=== PATIENT | male | born 1965 | race Two or more races ===

== ENCOUNTER 2017-06-02 03:05 | Emergency (ER) | payer OTHER ==
[2017-06-02 03:19] VITALS: BP 100/51; PULSE 78; TEMP 98.7; BMI 31.9
--- NOTE | 2017-06-02 03:26 | PDOC ---
History of Present Illness - History of Present Illness Initial Comments: 06/02/17 04:39 Mr. Hannah is a 51 year old male with a significant past medical history of NIDDM , HC, HTN, and prostate cancer who presents to the emergency department with a 1 day history of weakness to the legs and some loss of leg coordinations with tingling of his feet. He says that the foot tingling occurred in the past when his diabetes was acting up, but that the weakness feeling was new. The patient denies chest pain, shortness of breath, headache and dizziness. Denies fever, chills, nausea, vomit, diarrhea and constipation. Denies dysuria, frequency, urgency and hematuria. Allergies: NKDA Past surgical history: Prostate surgery, cataract removal Social history: Social drinking, smokes approx. 1 pack of cigarettes / week PMD - Diana Jose 06/02/17 04:40 06/02/17 04:44 <Rene Fierro - Last Filed: 06/02/17 03:46> <Marissa Weaver - Last Filed: 06/02/17 21:32> - General Chief Complaint: CVA/TIA Stated Complaint: NUMBNESS/TINGLING OF FEET Time Seen by Provider: 06/02/17 03:24 Past History - Past Medical History Anemia: No Asthma: Yes ( CHILD) Cancer: No Cardiac Disorders: No CVA: No COPD: No CHF: No Dementia: No Diabetes: Yes GI Disorders: No Disorders: No HTN: Yes Hypercholesterolemia: No Liver Disease: No Seizures: No Thyroid Disease: No - Surgical History Abdominal Surgery: No Appendectomy: No Cardiac Surgery: No Cholecystectomy: No Lung Surgery: No Neurologic Surgery: No Orthopedic Surgery: Yes (L4-5 LAMINECTOMY) - Psycho/Social/Smoking Cessation Hx Suicidal Ideation: No Smoking History: Never smoked Have you smoked in the past 12 months: No If you are a former smoker, when did you quit?: 4 YRS Information on smoking cessation initiated: No Hx Alcohol Use: No Drug/Substance Use Hx: No Substance Use Type: None Hx Substance Use Treatment: No <Rene Fierro - Last Filed: 06/02/17 03:46> <Marissa Weaver - Last Filed: 06/02/17 21:32> - Past Medical History Allergies/Adverse Reactions: Allergies Allergy/AdvReac Type Severity Reaction Status Date / Time No Known Drug Allergies Allergy Verified 06/02/17 03:18 Home Medications: Ambulatory Orders Atorvastatin Ca [Lipitor] 20 mg PO HS 01/25/16 Glipizide [Glipizide ER] 10 mg PO DAILY 01/25/16 Lisinopril 10 mg PO DAILY 01/25/16 Sitagliptin Phos/Metformin HCl [Janumet 50-1,000 mg Tablet] 1 each PO DAILY Review of Systems - Review of Systems Comments:: 06/02/17 04:40 GENERAL/CONSTITUTIONAL: +Weakness reported in the legs. Tingling to the toes and feet with legs feeling like "weights on them." No fever or chills. HEAD, EYES, EARS, NOSE AND THROAT: No change in vision. No ear pain or discharge. No sore throat. CARDIOVASCULAR: No chest pain or shortness of breath RESPIRATORY: No cough, wheezing, or hemoptysis. GASTROINTESTINAL: No nausea, vomiting, diarrhea or constipation. GENITOURINARY: No dysuria, frequency, or change in urination. MUSCULOSKELETAL: No joint or muscle swelling or pain. No neck or back pain. SKIN: No rash NEUROLOGIC: No headache, vertigo, loss of consciousness, or change in strength/ sensation. ENDOCRINE: No increased thirst. No abnormal weight change HEMATOLOGIC/LYMPHATIC: No anemia, easy bleeding, or history of blood clots. ALLERGIC/IMMUNOLOGIC: No hives or skin allergy. 06/02/17 04:44 <Rene Fierro - Last Filed: 06/02/17 03:46> *Physical Exam - Vital Signs Last Vital Signs Temp Pulse Resp BP Pulse Ox 98.7 F 78 20 100/51 97 06/02/17 03:18 06/02/17 03:18 06/02/17 03:18 06/02/17 03:18 06/02/17 03:18 - Physical Exam Comments: 06/02/17 04:40 GENERAL: Awake, alert, and fully oriented, in no acute distress HEAD: No signs of trauma, normocephalic, atraumatic EYES: PERRLA, EOMI, sclera anicteric, conjunctiva clear ENT: Auricles normal inspection, hearing grossly normal, nares patent, oropharynx clear without exudates. Moist mucosa NECK: Normal ROM, supple, no lymphadenopathy, JVD, or masses LUNGS: No distress, speaks full sentences, clear to auscultation bilaterally HEART: Regular rate and rhythm, normal S1 and S2, no murmurs, rubs or gallops, peripheral pulses normal and equal bilaterally. ABDOMEN: Soft, nontender, normoactive bowel sounds. No guarding, no rebound. No masses EXTREMITIES: +Loss of sharp/dull differentiation intermediate down shins ROMAN. Normal inspection, Normal range of motion, no edema. No clubbing or cyanosis. NEUROLOGICAL: Cranial nerves II through XII grossly intact. Normal speech, normal gait, no focal sensorimotor deficits SKIN: Warm, Dry, normal turgor, no rashes or lesions noted. 06/02/17 04:46 <Rene Fierro - Last Filed: 06/02/17 03:46> - Vital Signs Last Vital Signs Temp Pulse Resp BP Pulse Ox 98.7 F 78 20 100/51 97 06/02/17 03:18 06/02/17 03:18 06/02/17 03:18 06/02/17 03:18 06/02/17 03:18 <Marissa Weaver - Last Filed: 06/02/17 21:32> ED Treatment Course - LABORATORY CBC & Chemistry Diagram: 06/02/17 03:55 06/02/17 03:55 - ADDITIONAL ORDERS Additional order review: 06/02/17 03:55 RBC 4.77 D MCV 87.2 MCHC 32.9 RDW 15.1 MPV 9.3 <Marissa Weaver - Last Filed: 06/02/17 21:32> Medical Decision Making - Medical Decision Making 06/02/17 04:47 Mr. Hannah presented for evaluation of weakness and tingling that he says makes his "legs feel like noodles." He endorses recently losing 50 pounds in an effort to be more health and control his diabetes. He says that according to his PCP he no longer needs medication for HTN, DM, or HC. Sudden onset weakness and parasthesias concerning for spinal column changes or effects from his diabetes. Ordered Lumbar CT to evaluate as well as general CBC / BMP. CBC/BMP values WNL. 06/02/17 04:52 06/02/17 04:54 CT read negative for new pathology. Will refer to neurology outpatient. <Rene Fierro - Last Filed: 06/02/17 03:46> *DC/Admit/Observation/Transfer - Attestations Physician Attestion: 06/02/17 04:56 I, Dr. Rene Fierro, attest that this document has been prepared under my direction and personally reviewed by me in its entirety. I further attest, that it accurately reflects all work, treatment, procedures and medical decision -making performed by me. <Rene Fierro - Last Filed: 06/02/17 03:46> <Marissa Weaver - Last Filed: 06/02/17 21:32> Diagnosis at time of Disposition: Weakness of both legs - Discharge Dispostion Disposition: HOME - Referrals Referrals: Diana Jose MD [Primary Care Provider] - Parker Saleh MD [Staff Physician] - - Patient Instructions Printed Discharge Instructions: DI for Numbness/tingling Additional Instructions: Please return immediately if your symptoms get worse or you experience any pain/ loss of sensation
[2017-06-02 04:03] LABS: MCH 28.7 pg (25.7-33.7); MCHC 32.9 g/dl (32.0-35.9); MEAN CELL VOLUME 87.2 fl (80-96); MEAN PLT VOLUME 9.3 fl (7.5-11.1); PLATELET COUNT 245 K/MM3 (134-434); RDW 15.1 % (11.9-15.9)
[2017-06-02 04:25] LABS: ANION GAP 7 (8-16); CALCIUM 8.6 mg/dL (8.5-10.1); CO2 28 mmol/L (21-32); CREATININE 1.2 mg/dL (0.7-1.3); GLUCOSE,RANDOM 93 mg/dL (74-106)
--- NOTE | 2017-06-02 05:01 | PDOC ---
Attending Attestation - Resident Resident Name: Rene Fierro - HPI HPI: 06/02/17 04:56 Pt comes with numbness of his lower legs bilaterally. No other complaints. No loss of bowel or bladder. - Physicial Exam PE: 06/02/17 04:57 Normal exam. No pitting edema of legs. Heart lungs normal. Normal neuro exam and CN exam and reflexes. Slightly decreased pinprick sensation of the lower legs. I agree with residents exam. - Medical Decision Making 06/02/17 05:01 CT L spine is normal; no sign of spinal cord lesions thhat could be causing pt' s paresthesias. Pt's labs are normal. He will be asked to follow with neurology as an outpatient
== END 2017-06-02 05:08 | disposition home or self-care (01) ==
LOC: JER 03:05
DX: M62.81 Muscle weakness (generalized) (principal); I10 Essential (primary) hypertension; E11.9 Type 2 diabetes mellitus without complications
CPT/HCPCS: 36415; 72131-TC; 80048; 85027; 99283-25

== ENCOUNTER 2017-06-14 19:56 | Inpatient (IN) | payer OTHER ==
[2017-06-14 20:11] VITALS: BMI 27.0
--- NOTE | 2017-06-14 20:25 | PDOC ---
History of Present Illness - General History Source: Patient Exam Limitations: No Limitations - History of Present Illness Initial Comments: The patient is a 51 yo M with a past medical history significant for NIDDM, HC, HTN, prostate cancer, back surgeries on L3L4L5 (last surgery in 2014) who presents with increasing numbness in his LE (R worse than L). He states his back , legs and feet all feel like pins and needles. The patient was seen here on for numbness and tingling of his feet which has since progressed to both his legs and arms. The patient states he previously injured himself working lifting a heavy object. He states that he now feels like he doesnt have complete control over his LE. He states his current medications arent helping with his pain. The patient states he has an appointment on Saturday with pain management. He also endorses shooting pains down his R arm that began yesterday. The patient denies urinary and bowel changes. He denies chest pain, palpitations, and lightheadedness. <Deya Cordoba - Last Filed: 06/14/17 21:24> <Marissa Weaver - Last Filed: 06/15/17 03:48> - General Chief Complaint: Pain Stated Complaint: BACK AND LEG PAIN Time Seen by Provider: 06/14/17 20:24 Past History <Deya Cordoba - Last Filed: 06/14/17 21:24> - Past Medical History Anemia: No Asthma: Yes ( CHILD) Cancer: No Cardiac Disorders: No CVA: No COPD: No CHF: No Dementia: No Diabetes: Yes GI Disorders: No Disorders: No HTN: Yes Hypercholesterolemia: No Liver Disease: No Seizures: No Thyroid Disease: No - Surgical History Abdominal Surgery: No Appendectomy: No Cardiac Surgery: No Cholecystectomy: No Lung Surgery: No Neurologic Surgery: No Orthopedic Surgery: Yes (L4-5 LAMINECTOMY) - Psycho/Social/Smoking Cessation Hx Anxiety: No Suicidal Ideation: No Smoking History: Never smoked Have you smoked in the past 12 months: No Number of Cigarettes Smoked Daily: 4 If you are a former smoker, when did you quit?: 4 YRS Information on smoking cessation initiated: No Hx Alcohol Use: No Drug/Substance Use Hx: No Substance Use Type: None Hx Substance Use Treatment: No <Marissa Weaver - Last Filed: 06/15/17 03:48> - Past Medical History Allergies/Adverse Reactions: Allergies Allergy/AdvReac Type Severity Reaction Status Date / Time No Known Drug Allergies Allergy Verified 06/14/17 20:07 Home Medications: Ambulatory Orders Gabapentin [Neurontin -] 300 mg PO Q8H 06/14/17 Review of Systems - Review of Systems Able to Perform ROS?: Yes Comments:: CONSTITUTIONAL: Absent: fever, chills, diaphoresis, generalized weakness, malaise, loss of appetite HEENT: Absent: rhinorrhea, nasal congestion, throat pain, throat swelling, difficulty swallowing, mouth swelling, ear pain, eye pain, visual Changes CARDIOVASCULAR: Absent: chest pain, syncope, palpitations, irregular heart rate, lightheadedness , peripheral edema RESPIRATORY: Absent: cough, shortness of breath, dyspnea with exertion, orthopnea, wheezing, stridor, hemoptysis GASTROINTESTINAL: Absent: abdominal pain, abdominal distension, nausea, vomiting, diarrhea, constipation, melena, hematochezia GENITOURINARY: Absent: dysuria, frequency, urgency, hesitancy, hematuria, flank pain, genital pain MUSCULOSKELETAL: Absent: myalgia, arthralgia, joint swelling SKIN: Absent: rash, itching, pallor HEMATOLOGIC/IMMUNOLOGIC: Absent: easy bleeding, easy bruising, lymphadenopathy, frequent infections ENDOCRINE: Absent: unexplained weight gain, unexplained weight loss, heat intolerance, cold intolerance NEUROLOGIC: +deficits to light touch in UE and LE bilaterally. Motor deficits in LE and RUE. Unsteady gait. Absent: headache, dizziness, seizure, mental status changes, bladder or bowel incontinence PSYCHIATRIC: Absent: anxiety, depression, suicidal or homicidal ideation, hallucinations. <Deya Cordoba - Last Filed: 06/14/17 21:24> *Physical Exam - Vital Signs Last Vital Signs Temp Pulse Resp BP Pulse Ox 98.0 F 87 20 148/86 99 06/14/17 20:08 06/14/17 20:08 06/14/17 20:08 06/14/17 20:08 06/14/17 20:08 - Physical Exam Comments: GENERAL: Well developed, well nourished. Awake and alert. No acute distress. HEENT: Normocephalic, atraumatic. PERRLA, EOMI. No conjunctival pallor. Sclera are non- icteric. Moist mucous membranes. Oropharynx is clear. NECK: Supple. Full ROM. No JVD. Carotid pulses 2+ and symmetric, without bruits. No thyromegaly. No lymphadenopathy. CARDIOVASCULAR: Regular rate and rhythm. No murmurs, rubs, or gallops. Distal pulses are 2+ and symmetric. PULMONARY: No evidence of respiratory distress. Lungs clear to auscultation bilaterally. No wheezing, rales or rhonchi. ABDOMINAL: Soft. Non-tender. Non-distended. No rebound or guarding. No organomegaly. Normoactive bowel sounds. MUSCULOSKELETAL Normal range of motion at all joints. No bony deformities or tenderness. No CVA tenderness. EXTREMITIES: No cyanosis. No clubbing. No edema. No calf tenderness. SKIN: Warm and dry. Normal capillary refill. No rashes. No jaundice. NEUROLOGICAL: Alert, awake, appropriate. Cranial nerves 2-12 intact. No deficits to light touch and temperature in face. No motor deficits in the in face, upper extremities and lower extremities. 4/ 5 strength in LE bilaterally. Decreased sensation to pinprick bilaterally, arm strength decreased bilaterally. PSYCHIATRIC: Cooperative. Good eye contact. Appropriate mood and affect. <Deya Cordoba - Last Filed: 06/14/17 21:24> - Vital Signs Last Vital Signs Temp Pulse Resp BP Pulse Ox 98.0 F 87 20 148/86 99 06/14/17 20:08 06/14/17 20:08 06/14/17 20:08 06/14/17 20:08 06/14/17 20:08 <Marissa Weaver - Last Filed: 06/15/17 03:48> ED Treatment Course - LABORATORY CBC & Chemistry Diagram: 06/14/17 21:39 06/14/17 21:39 <Marissa Weaver - Last Filed: 06/15/17 03:48> Medical Decision Making - Medical Decision Making 06/15/17 01:18 Patient Name: Nemesio Hannah THIS IS A PRELIMINARYREPORT FROM [facility] EXAM: CT cervical spine without contrast IMAGES: 325 INDICATION: Left arm weakness DATE OF SERVICE: 2017-06-14 23:20:37.0 COMPARISON: none FINDINGS: Tiny central herniation is at C3-4 and C5-6 without significant mass effect. There is mild right neural foraminal narrowing at C5-6 due to uncovertebral joint hypertrophy. Small central herniation at C6-7 which mildly narrows the central canal. There is no fracture, subluxation, prevertebral soft tissue swelling. The lung apices are clear. IMPRESSION: Tiny central C3-4 and C5-6 herniations without mass effect, although there is mild right neural foraminal narrowing at C5-6 due to uncovertebral joint hypertrophy. Mild central canal narrowing at C6-7 T2-1 small central herniation. THIS DOCUMENT HAS BEEN ELECTRONICALLY SIGNED Patient Name: Nemesio Hannah THIS IS A PRELIMINARYREPORT FROM [facility] EXAM: CT lumbar spine without contrast IMAGES: 328 INDICATION: Worsening bilateral leg numbness DATE OF SERVICE: 2017-06-14 23:27:26.0 COMPARISON: none FINDINGS: No fracture or subluxation. Patient is status post L3 and L4 laminectomy with fusion from L3-L5 as well as interbody fusion. The L3-4 demonstrates incomplete osseous incorporation superiorly. The L4-5 intervertebral bone plug demonstrates complete osseous incorporation. Posterior instrumentation is appropriate position. There is mild right neural foraminal narrowing at L3-4 level secondary to lateral osteophytic ridging. No central canal neural frontal narrowing is identified. at the L3-4 level does not demonstrate osseous incorporation superiorly though it does inferiorly in the L4 -5 IMPRESSION: Mild right L3-4 neural foraminal narrowing due to lateral osteophytic ridging. Incomplete osseous incorporation of the L3-4 bone plug. THIS DOCUMENT HAS BEEN ELECTRONICALLY SIGNED 06/15/17 03:44 Pt comes with worsening leg weakness for the past week or so. Now ambulating with a cane. States that he has great difficulty walking up his 4 flights to his apt. Pt has 4/5 strength throughout. He has good reflexes and pulses. Normal pulses in legs and feet. Pt has parsthesias, decreased pin prick sensation. pt will be admitted to the hospitalist team as he is unable to walk and drive and he will require neuro eval/consult <Marissa Weaver - Last Filed: 06/15/17 03:48> *DC/Admit/Observation/Transfer - Attestations Scribe Attestion: Documentation prepared by Deya Cordoba, acting as medical support specialist for Marissa Weaver MD/DO. <Deya Cordoba - Last Filed: 06/14/17 21:24> - Discharge Dispostion Admit: Yes <Marissa Weaver - Last Filed: 06/15/17 03:48> Diagnosis at time of Disposition: Weakness of both legs, Unable to ambulate - Discharge Dispostion Disposition: HOME - Referrals
[2017-06-14 22:11] LABS: EOSINOPHIL 7.9 % (0-4.5); MCH 29.1 pg (25.7-33.7); MCHC 33.1 g/dl (32.0-35.9); MEAN PLT VOLUME 10.1 fl (7.5-11.1); NEUTROPHILS 40.7 % (42.8-82.8); PLATELET COUNT 220 K/MM3 (134-434); RDW 14.9 % (11.9-15.9); WHITE BLOOD COUNT 5.6 K/mm3 (4.0-10.0)
[2017-06-14 22:37] LABS: ALBUMIN 3.5 g/dl (3.4-5.0); ANION GAP 5 (8-16); CALCIUM 9.5 mg/dL (8.5-10.1); CO2 27 mmol/L (21-32); CREATININE 0.7 mg/dL (0.7-1.3); GLUCOSE,RANDOM 84 mg/dL (74-106); SGOT/AST 27 U/L (15-37); SGPT/ALT 32 U/L (12-78)
[2017-06-14 22:43] LABS: ALK PHOS 89 U/L (45-117); BILIRUBIN,TOTAL 0.1 mg/dL (0.2-1.0); TOT PROT 7.2 g/dl (6.4-8.2)
--- NOTE | 2017-06-15 01:37 | PN ---
Teaching Attending Note Name of Resident: Pau Wheeler ATTENDING PHYSICIAN STATEMENT I saw and evaluated the patient. I reviewed the resident's note and discussed the case with the resident. I agree with the resident's findings and plan as documented. SUBJECTIVE: 51 yo M with pmhx of NIDDM, Prostate Ca s/p TURP, low back injury s/p sx L3-L5 ( 2014). He presents with increasing numbness iN RLE and weakness in RLE >LLE. States he has numbness/ tingling of bilateral LE and UE that has been happening past few days.No chest pain, Pressure or shortness of breah OBJECTIVE: Physical: VS: Vital Signs Period Temp Pulse Resp BP Sys/Gates Pulse Ox Last 24 Hr 98.0 F 87 20 148/86 99 GEN: NAD, resting in bed HEENT: NCAT, PERRL, moth without Erythema/edema CARD:RRR S2 RESP: CTAB ABD: BSx4, NTD to papation ExT: - C/C/E CBCD WBC 5.6 K/mm3 (4.0-10.0) 06/14/17 21:39 RBC 4.96 M/mm3 (4.00-5.60) 06/14/17 21:39 Hgb 14.5 GM/dL (11.7-16.9) 06/14/17 21:39 Hct 43.6 % (35.4-49) 06/14/17 21:39 MCV 88.0 fl (80-96) 06/14/17 21:39 MCHC 33.1 g/dl (32.0-35.9) 06/14/17 21:39 RDW 14.9 % (11.9-15.9) 06/14/17 21:39 Plt Count 220 K/MM3 (134-434) 06/14/17 21:39 MPV 10.1 fl (7.5-11.1) 06/14/17 21:39 CMP Sodium 140 mmol/L (136-145) 06/14/17 21:39 Potassium 4.4 mmol/L (3.5-5.1) 06/14/17 21:39 Chloride 108 mmol/L (98-107) H 06/14/17 21:39 Carbon Dioxide 27 mmol/L (21-32) 06/14/17 21:39 Anion Gap 5 (8-16) L 06/14/17 21:39 BUN 17 mg/dL (7-18) 06/14/17 21:39 Creatinine 0.7 mg/dL (0.7-1.3) D 06/14/17 21:39 Creat Clearance w eGFR > 60 (>60) 06/14/17 21:39 Random Glucose 84 mg/dL (74-106) 06/14/17 21:39 Calcium 9.5 mg/dL (8.5-10.1) 06/14/17 21:39 Total Bilirubin 0.1 mg/dL (0.2-1.0) L D 06/14/17 21:39 AST 27 U/L (15-37) D 06/14/17 21:39 ALT 32 U/L (12-78) D 06/14/17 21:39 Alkaline Phosphatase 89 U/L (45-117) D 06/14/17 21:39 Total Protein 7.2 g/dl (6.4-8.2) D 06/14/17 21:39 Albumin 3.5 g/dl (3.4-5.0) D 06/14/17 21:39 06/15/17 01:18 Patient Name: Nemesio Hannah THIS IS A PRELIMINARYREPORT FROM [facility] EXAM: CT cervical spine without contrast IMAGES: 325 INDICATION: Left arm weakness DATE OF SERVICE: 2017-06-14 23:20:37.0 COMPARISON: none FINDINGS: Tiny central herniation is at C3-4 and C5-6 without significant mass effect. There is mild right neural foraminal narrowing at C5-6 due to uncovertebral joint hypertrophy. Small central herniation at C6-7 which mildly narrows the central canal. There is no fracture, subluxation, prevertebral soft tissue swelling. The lung apices are clear. IMPRESSION: Tiny central C3-4 and C5-6 herniations without mass effect, although there is mild right neural foraminal narrowing at C5-6 due to uncovertebral joint hypertrophy. Mild central canal narrowing at C6-7 T2-1 small central herniation. THIS DOCUMENT HAS BEEN ELECTRONICALLY SIGNED Patient Name: Nemesio Hannah THIS IS A PRELIMINARYREPORT FROM [facility] EXAM: CT lumbar spine without contrast IMAGES: 328 INDICATION: Worsening bilateral leg numbness DATE OF SERVICE: 2017-06-14 23:27:26.0 COMPARISON: none FINDINGS: No fracture or subluxation. Patient is status post L3 and L4 laminectomy with fusion from L3-L5 as well as interbody fusion. The L3-4 demonstrates incomplete osseous incorporation superiorly. The L4-5 intervertebral bone plug demonstrates complete osseous incorporation. Posterior instrumentation is appropriate position. There is mild right neural foraminal narrowing at L3-4 level secondary to lateral osteophytic ridging. No central canal neural frontal narrowing is identified. at the L3-4 level does not demonstrate osseous incorporation superiorly though it does inferiorly in the L4 -5 IMPRESSION: Mild right L3-4 neural foraminal narrowing due to lateral osteophytic ridging. Incomplete osseous incorporation of the L3-4 bone plug. THIS DOCUMENT HAS BEEN ELECTRONICALLY SIGNED ASSESSMENT AND PLAN: 51 M with pmhx of HTN,. HLD, prostate ca who presents with bilateral LE weakness with LLE being at its weakness 1.) Bilateral LE weakbess - No signs of cord compression on CT - MRI Thoracic/Lumbar spine 2.) HTN - C/w Home med 3.) Hx of Prostate Ca - Fu outp.Chk. PSA 4.) Dvt Ppx - Heparin [address] in Med-Sx
--- NOTE | 2017-06-15 03:00 | HP ---
CHIEF COMPLAINT: Legs are getting weak PCP: Dr. Jose HISTORY OF PRESENT ILLNESS: Pt is a 51yo M with a PMHX of lumbar surgeries (2014), well-controlled DM2, prostate cancer s/p prostatectomy, HLD, HTN who presented with increasing weakness and numbness in his feet with increased numbness in his fingertips. The patient was seen in the ER last week for complaints of B/L Leg numbness and tingling. At that time a CT of the lumbar spine was taken which showed L3-L4 graft with end-plate irregularity with associated sclerosis. No definite canal stenosis or disc herniation. The patient's labs were WNL and he was asked to followup with neurology as an outpatient. He states that he saw Dr. Weller ( neurosurgeon) this Saturday who states his symptoms are likely from his back surgeries. The patient came into the ER today complaining that the weakness and numbness have progressively gotten worse, and now he needs an assistive cane to walk. He denies bladder or bowel dysfunction, but attests to neuropathic pain radiating from back to both legs. He also is experiencing B/L hand numbness and weakness, and attests to neuropathic pain radiating from neck to hands. He does have chronic diabetic neuropathy, and is on Gabapentin. No CP, no SOB, no fevers , no chills. ER course was notable for: (1) Labs (2) CT C-Spine - Levels of central herniation and mild foraminal narrowing by osteophytes (3) CT L-Spine - L3-L4 laminectomy, with foraminal narrowing due to osteophytes Recent Travel: Denies PAST MEDICAL HISTORY: DM2 (well controlled), HLD, HTN, Prostate cancer (s/p prostatectomy) PAST SURGICAL HISTORY: L3-L4 laminectomy, Prostatectomy, cataract surgery Social History: Smokin-3 cigarettes a day Alcohol: Occasional drinker Drugs: Denies Family History: Noncontributory Allergies No Known Drug Allergies Allergy (Verified 06/14/17 20:07) HOME MEDICATIONS: Home Medications Medication Instructions Recorded Gabapentin [Neurontin -] 300 mg PO Q8H 06/14/17 REVIEW OF SYSTEMS CONSTITUTIONAL: Absent: fever, chills, diaphoresis, generalized weakness, malaise, loss of appetite, weight change HEENT: Absent: rhinorrhea, nasal congestion, throat pain, throat swelling, difficulty swallowing, mouth swelling, ear pain, eye pain, visual changes CARDIOVASCULAR: Absent: chest pain, syncope, palpitations, irregular heart rate, lightheadedness , peripheral edema RESPIRATORY: Absent: cough, shortness of breath, dyspnea with exertion, orthopnea, wheezing, stridor, hemoptysis GASTROINTESTINAL: Absent: abdominal pain, abdominal distension, nausea, vomiting, diarrhea, constipation, melena, hematochezia GENITOURINARY: Absent: dysuria, frequency, urgency, hesitancy, hematuria, flank pain, genital pain MUSCULOSKELETAL: Absent: myalgia, arthralgia, joint swelling, back pain, neck pain SKIN: Absent: rash, itching, pallor HEMATOLOGIC/IMMUNOLOGIC: Absent: easy bleeding, easy bruising, lymphadenopathy, frequent infections ENDOCRINE: Absent: unexplained weight gain, unexplained weight loss, heat intolerance, cold intolerance NEUROLOGIC: Absent: headache, dizziness, seizure, mental status changes, bladder or bowel incontinence Present: weakness, paresthesias, unsteady gait PSYCHIATRIC: Absent: anxiety, depression, suicidal or homicidal ideation, hallucinations. PHYSICAL EXAMINATION Vital Signs - 24 hr 06/14/17 20:08 Temperature 98.0 F Pulse Rate 87 Respiratory 20 Rate Blood Pressure 148/86 O2 Sat by Pulse 99 Oximetry (%) GENERAL: AAO, in no acute distress HEENT: PERRLA, EOMi, No LAD LUNG: CTABL, no labored breathing HEART: S1, S2, RRR, No MRG ABD: Soft, nontender, nondistended, normoactive BS MSK: 2+ pulses, no erythema, no edema NEURO: Oriented x3 Cranial nerves 2-12 intact Sensation: Sensation is increased on the RUE > LUE, and RLE > LLE; no vibratory or gross touch sensation on dorsal feet b/l, minimal sensation on plantar Muscular: Upper Extremity (R handgrip 4/5, R biceps 4/5, R triceps 4/5; L handgrip 5 /5, L bicep 5/5, L tricep 5/5) Lower extremity (R hip ext 3/5, R knee ext 4/5, R dorsi/plant flex 4/5, L hip ext 4/5, L knee ext 4/5, L dorsi/plant flex 4/5) Reflexes: 2+ in UE, 1+ in LE Laboratory Results - last 24 hr 06/14/17 06/14/17 21:39 21:39 WBC 5.6 RBC 4.96 Hgb 14.5 Hct 43.6 MCV 88.0 MCH 29.1 MCHC 33.1 RDW 14.9 Plt Count 220 MPV 10.1 Neutrophils % 40.7 L D Lymphocytes % 42.5 H D Monocytes % 7.9 Eosinophils % 7.9 H D Basophils % 1.0 Sodium 140 Potassium 4.4 Chloride 108 H Carbon Dioxide 27 Anion Gap 5 L BUN 17 Creatinine 0.7 D Creat Clearance w eGFR > 60 Random Glucose 84 Calcium 9.5 Total Bilirubin 0.1 L D AST 27 D ALT 32 D Alkaline Phosphatase 89 D Total Protein 7.2 D Albumin 3.5 D MED Rec: Patient told the examiner that he only takes Gabapentin Imaging: CT Cervical Spine (prelim from [employer]) FINDINGS: Tiny central herniation is at C3-4 and C5-6 w/o mass effect. Mild R neural foraminal narrowing at C5-6 due to uncovertebral joint hypertrophy. Small central herniation at C6-7 which mildly narrows the central canal. There is no fx, subluxation, prevertebral soft tissue swelling. The lung apices are clear. IMPRESSION: Tiny central C3-4 and C5-6 herniations without mass effect, although there is mild right neural foraminal narrowing at C5-6 due to uncovertebral joint hypertrophy. Mild central canal narrowing at C6-7, T2-[address] Lumbar Spine (prelim from [facility] [employer]) FINDINGS: No fracture or subluxation. Patient is status post L3 and L4 laminectomy with fusion from L3-L5 as well as interbody fusion. The L3-4 demonstrates incomplete osseous incorporation superiorly. The L4-5 intervertebral bone plug demonstrates complete osseous incorporation. Posterior instrumentation is appropriate position. There is mild right neural foraminal narrowing at L3-4 level secondary to lateral osteophytic ridging. No central canal neural frontal narrowing is identified. at the L3-4 level does not demonstrate osseous incorporation superiorly though it does inferiorly in the L4 -5 IMPRESSION: Mild right L3-4 neural foraminal narrowing due to lateral osteophytic ridging. Incomplete osseous incorporation of the L3-4 bone plug. ASSESSMENT/PLAN: Pt is a 51yo M with a hx of lumbar spine surgery, DM2, HLD, HTN who presented with progressive weakness and numbness of his bilateral upper and lower extremities. # Bilateral LE Weakness - CT L spine shows mild foraminal narrowing without cord compression - F/u MRI L spine - Consult Neurosurgery (Dr. Weller) + Neurology (Dr. Gilmore) # Bilateral UE Numbness - Diabetic neuropathy vs c-spine pathology - F/u MRI C spine - Continue home Gabapentin # Hx of Prostate CA - s/p surgery, f/u with PCP as an outpatient - Consider checking PSA - Bone scan in 2016 was negative for mets # Hx of DM2 - BGMs + SSI # Hx of HTN - Pt does not take antiHTN meds - BP on admission 148/86 - Started Lisinopril 10mg QD # Hx of HLD - F/u lipid panel # FEN - Fluids: None - Electrolytes: F/u, no abnormalities - Nutrition: Sodium diet # Prophylaxis - DVT: Heparin 5,000u SQ TID - GI: Not needed - Deconditioning: PT ordered # Disposition - Await MRI and Neurosurgery reccs Dr. Pau Wheeler MD. PGY1 - IM Resident This case was discussed with the attending physician Dr. Caldwell Visit type - Emergency Visit Emergency Visit: Yes ED Registration Date: 06/15/17 Care time: The patient presented to the Emergency Department on the above date and was hospitalized for further evaluation of their emergent condition. - New Patient This patient is new to me today: Yes Date on this admission: 06/16/17 - Critical Care Critical Care patient: No
[2017-06-15] MEDS ORDERED: GABAPENTIN 300 MG CAPSULE (FP) PO SCH (06:00)
[2017-06-15] MEDS: HEPARIN NA (PORCINE) 5,000 UNITS/ML 1ML VIAL SQ SCH ×3 (06:45→22:50)
[2017-06-15] MEDS: INSULIN SLIDING SCALE (NOVOLOG) 1 VIAL SQ SCH ×3 (06:46→16:37)
[2017-06-15] MEDS ORDERED: HYDROmorphone HCL CARPU-JECT 1 MG/1 ML DISP.SYRIN IVPB PRN ×2 (08:35→10:32)
[2017-06-15] MEDS: LISINOPRIL 10 MG TABLET (FP) PO SCH (09:49)
--- NOTE | 2017-06-15 10:31 | PN ---
Physical Exam: SUBJECTIVE: Patient seen and examined c/o unable to ambulate. Ambulating with difficulty. The patient denies urinary and bowel changes. OBJECTIVE: Vital Signs Temperature 97.8 F 06/15/17 09:14 Pulse Rate 60 06/15/17 09:14 Respiratory Rate 20 06/15/17 09:14 Blood Pressure 125/80 06/15/17 09:14 O2 Sat by Pulse Oximetry (%) 98 06/15/17 04:46 GENERAL: The patient is awake, alert, and fully oriented, in no acute distress. HEAD: Normal with no signs of trauma. EYES: PERRL, extraocular movements intact, sclera anicteric, conjunctiva clear. ENT: Ears normal, oropharynx clear without exudates, moist mucous membranes. NECK: Trachea midline, full range of motion, supple. LUNGS: Breath sounds equal, clear to auscultation bilaterally, no wheezes, no crackles, no accessory muscle use. HEART: Regular rate and rhythm, S1, S2 without murmur, rub or gallop. ABDOMEN: Soft, nontender, nondistended, normoactive bowel sounds, no guarding, no rebound, no hepatosplenomegaly, no masses. EXTREMITIES: 2+ pulses, warm, well-perfused, no edema. NEUROLOGICAL: Cranial nerves II through XII grossly intact. Normal speech, gait not observed, RUE power 4/5 < LUE 5/5 PSYCH: Normal mood, normal affect. SKIN: Warm, dry, normal turgor, no rashes or lesions noted CBCD WBC 5.6 K/mm3 (4.0-10.0) 06/14/17 21:39 RBC 4.96 M/mm3 (4.00-5.60) 06/14/17 21:39 Hgb 14.5 GM/dL (11.7-16.9) 06/14/17 21:39 Hct 43.6 % (35.4-49) 06/14/17 21:39 MCV 88.0 fl (80-96) 06/14/17 21:39 MCHC 33.1 g/dl (32.0-35.9) 06/14/17 21:39 RDW 14.9 % (11.9-15.9) 06/14/17 21:39 Plt Count 220 K/MM3 (134-434) 06/14/17 21:39 MPV 10.1 fl (7.5-11.1) 06/14/17 21:39 CMP Sodium 140 mmol/L (136-145) 06/14/17 21:39 Potassium 4.4 mmol/L (3.5-5.1) 06/14/17 21:39 Chloride 108 mmol/L (98-107) H 06/14/17 21:39 Carbon Dioxide 27 mmol/L (21-32) 06/14/17 21:39 Anion Gap 5 (8-16) L 06/14/17 21:39 BUN 17 mg/dL (7-18) 06/14/17 21:39 Creatinine 0.7 mg/dL (0.7-1.3) D 06/14/17 21:39 Creat Clearance w eGFR > 60 (>60) 06/14/17 21:39 Random Glucose 84 mg/dL (74-106) 06/14/17 21:39 Calcium 9.5 mg/dL (8.5-10.1) 06/14/17 21:39 Total Bilirubin 0.1 mg/dL (0.2-1.0) L D 06/14/17 21:39 AST 27 U/L (15-37) D 06/14/17 21:39 ALT 32 U/L (12-78) D 06/14/17 21:39 Alkaline Phosphatase 89 U/L (45-117) D 06/14/17 21:39 Total Protein 7.2 g/dl (6.4-8.2) D 06/14/17 21:39 Albumin 3.5 g/dl (3.4-5.0) D 06/14/17 21:39 Current Medications Generic Name Dose Route Start Last Admin Trade Name Freq PRN Reason Stop Dose Admin Gabapentin 300 mg 06/15/17 06:00 06/15/17 06:45 Neurontin - PO 300 mg TID SHERRIE Administration Heparin Sodium (Porcine) 5,000 unit 06/15/17 06:00 06/15/17 06:45 Heparin - SQ 5,000 unit TID SHERRIE Administration Hydromorphone HCl 0.5 mg 06/15/17 08:35 06/15/17 09:19 Dilaudid Injection - IVPB 0.5 mg Q3H PRN Administration PAIN LEVEL 6-10 Insulin Aspart 1 vial 06/15/17 07:00 06/15/17 06:46 Novolog Vial Sliding Scale - SQ Not Given [facility] Protocol Lisinopril 10 mg 06/15/17 10:00 06/15/17 09:49 Prinivil PO 10 mg DAILY SHERRIE Administration Laboratory Results - last 24 hr 06/15/17 06:21 POC Glucometer 84 Active Medications Generic Name Dose Route Start Last Admin Trade Name Freq PRN Reason Stop Dose Admin Gabapentin 300 mg 06/15/17 06:00 06/15/17 06:45 Neurontin - PO 300 mg TID SHERRIE Administration Heparin Sodium (Porcine) 5,000 unit 06/15/17 06:00 06/15/17 06:45 Heparin - SQ 5,000 unit TID SHERRIE Administration Hydromorphone HCl 0.5 mg 06/15/17 08:35 06/15/17 09:19 Dilaudid Injection - IVPB 0.5 mg Q3H PRN Administration PAIN LEVEL 6-10 Insulin Aspart 1 vial 06/15/17 07:00 06/15/17 06:46 Novolog Vial Sliding Scale - SQ Not Given [facility] Protocol Lisinopril 10 mg 06/15/17 10:00 06/15/17 09:49 Prinivil PO 10 mg DAILY SHERRIE Administration Home Medications Medication Instructions Recorded Gabapentin [Neurontin -] 300 mg PO Q8H 06/14/17 CT Cervical Spine ([facility]relim from [facility]) IMPRESSION: Tiny central C3-4 and C5-6 herniations without mass effect, although there is mild right neural foraminal narrowing at C5-6 due to vertebral joint hypertrophy. Mild central canal narrowing at C6-7, T2-[address] Lumbar Spine (prelim from [facility]) IMPRESSION: Mild right L3-4 neural foraminal narrowing due to lateral osteophytic ridging. Incomplete osseous incorporation of the L3-4 bone plug. ASSESSMENT/PLAN: Patient is a 51yo male well known to Dr.Tom Weller , with PMHx of NIDDM, HC, HTN, prostate cancer, lumbar fusion (L4-5 then L3-4) presented to ED. c/o increasing numbness in his LE (R worse than L), patient has hx of peripheral neuropathy on Neurontin .Also having difficulty with ambulation, He states that he walks like a drunk person . He is also c/o shooting pain down his R arm x 2 days. having difficulty walking with cane. States that he Fell backwards yesterday. # Acute over chronic pain syndrome/ Sciatica pain/peripheral neuropathy on neurontin continue, dilaudid IV for pain. Ordered thoracic and lumbar MRI r/o cord impingement by Neurosurgeon. will keep the patient NPO for now # acute over chronic radiculopathy on pain meds, being seen by neurologist. Patient is going to see pain management for SCS for chronic LBP/radiculopathy and peripheral neuropathy # Hx of Prostate CA s/p surgery, f/u with PCP as an outpatient, Bone scan in 2016 was negative for mets # Hx of DM2 ,sliding scale with coverage for now. # Hx of HTN, not on any meds. Started Lisinopril 10mg QD # Hx of HLD; F/u lipid panel DVT Px: Heparin 5,000u SQ TID Visit type - Emergency Visit Emergency Visit: Yes ED Registration Date: 06/15/17 Care time: The patient presented to the Emergency Department on the above date and was hospitalized for further evaluation of their emergent condition. - New Patient This patient is new to me today: Yes Date on this admission: 06/15/17 - Critical Care Critical Care patient: No
--- NOTE | 2017-06-15 11:01 | PN ---
Progress Note (short form) - Note Progress Note: NEUROSURGERY Pt well known to me H/o NIDDM, HC, HTN, prostate cancer, lumbar fusion (L4-5 then L3-4) c/o increasing numbness in his LE (R worse than L), though with chronic numbness and weakness for many years. c/o decreasing control and dexterity. Numbness in arm/hands, and legs/feet. He also c/o shooting pain down his R arm x 2 days. Difficulty walking with cane. Fell backwards yesterday. The patient denies urinary and bowel changes. PMH: Lumbar fusion, IDDN, HTN, prostate CA, depression SoHx- non-smoker, no EtOH, not working ROS- negative Family history- mother with scoliosis and lumbar fusion PE: AF, VSS HEENT- NC/AT; Neck- mild spasm;CV- RRR; Lungs- CTA; Abd- benign; Ext- No sign of DVT CN- intact; Motor- B UE 4+-5 pain limited; B LE 4+-5 except R Quad/IP 4-/5 also pain limited; Sensation- decreased B L4-5-S1 LT/PP; DTR- hyporeflexic; no long tract sign WBC 5.6; Hgb 14.[address]- mild reversal of lordosis; mild L disc bulge C6-7, mild disc bulge C5-6; mild spondylosis, DDD most noticeable C5-6 and C6-[address] (c/w May)- healed L4-5 and L3-4 interbody fusion, L3-4 pedicle screw system intact, mild ligamentum hypertrophy L2-3 Patient with chronic pain syndrome and chronic radiculopathy complicated possibly by diabetic peripheral neuropathy Current CT findings do not account for degree of symptomatology Cont Neurontin trial- increase dosage Thoracic and lumbar MRI r/o cord impingement Was going to see pain management for SCS for chronic LBP/radiculopathy and peripheral neuropathy and should do so Doubt neurosurgical intervention needed D/w medical team
--- NOTE | 2017-06-15 11:20 | CON.NEURO ---
Consult - History of Present Illness History of Present Illness: worsening of low back pain , difficulty walking , worsening of numbness in his finger tips HPI 51 year old male history of work related injury in past, he had surgery in 2006 and a revision in [address] johnson and recently He has worsening of back pain and severe back pain. As per patient he was taking opioids and he could not get and his pain got worse . He denies any recent injury or fever . He has history of prostate cancer ( s/p prostectomy, hld, htn ). Patient saw dr johnson and he suspected that pain is getting worse from abck surgery. He does also have diabetic neuropathy. He is able to walk but having difficulty walking. - Alcohol/Substance Use Hx Alcohol Use: No - Smoking History Smoking history: Former smoker Have you smoked in the past 12 months: No Aproximately how many cigarettes per day: 4 If you are a former smoker, when did you quit?: 4 YRS Home Medications - Allergies Allergies/Adverse Reactions: Allergies Allergy/AdvReac Type Severity Reaction Status Date / Time No Known Drug Allergies Allergy Verified 06/14/17 20:07 - Home Medications Home Medications: Ambulatory Orders Gabapentin [Neurontin -] 300 mg PO Q8H 06/14/17 Physical Exam-Neuro Vital Signs: Vital Signs Temperature 97.8 F 06/15/17 09:14 Pulse Rate 60 06/15/17 09:14 Respiratory Rate 20 06/15/17 09:14 Blood Pressure 125/80 06/15/17 09:14 O2 Sat by Pulse Oximetry (%) 98 06/15/17 04:46 NIH Stroke Scale - Total Score NIH Stroke Scale Score: 0 Assessment/Plan cc worsening of low back pain , difficulty walking , worsening of numbness in his finger tips HPI 51 year old male history of work related injury in past, he had surgery in 2006 and a revision in [address] johnson and recently He has worsening of back pain and severe back pain. As per patient he was taking opioids and he could not get and his pain got worse . He denies any recent injury or fever . He has history of prostate cancer ( s/p prostectomy, hld, htn ). Patient saw dr johnson and he suspected that pain is getting worse from abck surgery. He does also have diabetic neuropathy. He is able to walk but having difficulty walking. 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, tricep, bicep, shoulder abduciton were 5/5 Lower extermity there is more grade 4+ bialteral in hip flexion, knee flexion and dorsi flexion knee extension , hip extension and planter flexion were grade 5/5 there is sensy dysthesia more so on right side l4-5-6 distribution bilaterally bilateral knee and ankle reflex absent upper extremity both bicep and brachioradialis and tricep reflex were grade 2 CT c spine and l spine were reviewed Assessment-- worsening of severe back pain and worsening of walking ( given recent discontinuation of opioid meds), there is no urinary incontinence and there is reflex are present in upper extremity , most likey there seems symptoms seems to be related to lumbar spine and worsening of diabetic neuropathy , Less likely to be Guillain - [place] Syndrome Plan suggest to do MRI of L and C spine -- Physical therapy - gabpentin can be increased to 600 mg po tid - Neurosurgery consult( Dr Johnson is going to see him) Thank you for consult
[2017-06-15] MEDS: GABAPENTIN 400 MG CAPSULE (FP) PO SCH ×2 (13:26→22:50)
[2017-06-15] MEDS ORDERED: PT OWN MED DRAWER 7, Y5N ONE (17:47)
[2017-06-15] MEDS: CYCLOBENZAPRINE HCL 10 MG TABLET (FP) PO PRN (22:50)
[2017-06-16] MEDS: INSULIN SLIDING SCALE (NOVOLOG) 1 VIAL SQ SCH ×3 (06:23→17:17)
[2017-06-16] MEDS: HEPARIN NA (PORCINE) 5,000 UNITS/ML 1ML VIAL SQ SCH ×3 (06:23→22:24)
[2017-06-16] MEDS: GABAPENTIN 400 MG CAPSULE (FP) PO SCH ×3 (06:23→22:24)
--- NOTE | 2017-06-16 08:17 | EKG ---
Test Reason : Blood Pressure : / mmHG Vent. Rate : 062 BPM Atrial Rate : 062 BPM P-R Int : 138 ms QRS Dur : 090 ms QT Int : 398 ms P-R-T Axes : 058 001 017 degrees QTc Int : 403 ms NORMAL SINUS RHYTHM WITH SINUS ARRHYTHMIA NORMAL ECG WHEN COMPARED WITH ECG OF 23-AUG-2014 13:02, NO SIGNIFICANT CHANGE WAS FOUND Confirmed by BECKY PIERCE MD ([id number]) on 06/16/2017 8:17:47 AM Referred By: Confirmed By:BECKY PIERCE MD
--- NOTE | 2017-06-16 10:34 | PN ---
Progress Note (short form) - Note Progress Note: NEUROSURGERY Pain pattern unchanged; numbness and tingling unchanged PE: AF, VSS HEENT- NC/AT; Neck- mild spasm;CV- RRR; Lungs- CTA; Abd- benign; Ext- No sign of DVT CN- intact; Motor- B UE 4+-5 pain limited; B LE 4+-5 except R Quad/IP 4-/5 also pain limited; Sensation- decreased B L4-5-S1 LT/PP; DTR- hyporeflexic; no long tract sign C spine CT- mild reversal of lordosis; mild L disc bulge C6-7, mild disc bulge C5-6; mild spondylosis, DDD most noticeable C5-6 and C6-[address] (may)- healed L4-5 and L3-4 interbody fusion, L3-4 pedicle screw system intact, mild ligamentum hypertrophy L2-3 MRI C spine: multilevel mild DDD; mild disc bulge C3-4; small central disc protrusion C5-6 and C6-7 without significant central stenosis MRI T spine: mild spondylosis; multilevel mild degenerative disc disease; no canal impingement; mild T12-L1 degenerative disc bulge MRI LS spine: Prior L3-5 fusion; canal well decompressed at these levels; mild facet hypetrophy B; mild L2-3 foramenal narrowing Patient with chronic pain syndrome and chronic radiculopathy complicated by diabetic peripheral neuropathy Current CT/MRI findings do not account for degree of symptomatology or warrant any direct neurosurgical intervention for the C, T or LS spine Cont Neurontin trial- increased dosage to 400 tid yesterday Should see his pain management MD (Dr Wells) tomorrow as scheduled for SCS evaluation/consideration for chronic LBP/radiculopathy and peripheral neuropathy coverage F/U with PMD Dr Jose for DM medical management, weight reduction PT in am Saturday then discharge The above d/w patient D/w medical team
[2017-06-16 11:29] LABS: MEAN CELL VOLUME 87.9 fl (80-96); MEAN PLT VOLUME 9.5 fl (7.5-11.1); PLATELET COUNT 208 K/MM3 (134-434); RDW 14.8 % (11.9-15.9); WHITE BLOOD COUNT 4.8 K/mm3 (4.0-10.0)
[2017-06-16] MEDS: LISINOPRIL 10 MG TABLET (FP) PO SCH (11:48)
[2017-06-16 11:56] LABS: ANION GAP 4 (8-16); CALCIUM 8.7 mg/dL (8.5-10.1); CHOLESTEROL 199 mg/dL (50-200); CO2 27 mmol/L (21-32); GLUCOSE,RANDOM 92 mg/dL (74-106); LDL CHOLESTEROL (ONLY SJRH) 125 mg/dL (5-100)
--- NOTE | 2017-06-16 13:37 | PN ---
Progress Note (short form) - Note Progress Note: Continues to c/o having pain Temperature 97.7 F 06/16/17 09:00 Pulse Rate 55 L 06/16/17 09:00 Respiratory Rate 20 06/16/17 09:00 Blood Pressure 114/68 06/16/17 09:00 O2 Sat by Pulse Oximetry (%) 98 06/15/17 21:00 GENERAL: The patient is awake, alert, and fully oriented, in no acute distress. HEAD: Normal with no signs of trauma. EYES: PERRL, extraocular movements intact, sclera anicteric, conjunctiva clear. ENT: Ears normal, oropharynx clear without exudates, moist mucous membranes. NECK: Trachea midline, full range of motion, supple. LUNGS: Breath sounds equal, clear to auscultation bilaterally, no wheezes, no crackles, no accessory muscle use. HEART: Regular rate and rhythm, S1, S2 without murmur, rub or gallop. ABDOMEN: Soft, nontender, nondistended, normoactive bowel sounds, no guarding, no rebound, no hepatosplenomegaly, no masses. EXTREMITIES: 2+ pulses, warm, well-perfused, no edema. NEUROLOGICAL: Cranial nerves II through XII grossly intact. Normal speech, gait not observed, RUE power 4/5 < LUE 5/5 PSYCH: Normal mood, normal affect. SKIN: Warm, dry, normal turgor, no rashes or lesions noted CBCD WBC 4.8 K/mm3 (4.0-10.0) 06/16/17 11:05 RBC 5.04 M/mm3 (4.00-5.60) 06/16/17 11:05 Hgb 14.6 GM/dL (11.7-16.9) 06/16/17 11:05 Hct 44.3 % (35.4-49) 06/16/17 11:05 MCV 87.9 fl (80-96) 06/16/17 11:05 MCHC 33.0 g/dl (32.0-35.9) 06/16/17 11:05 RDW 14.8 % (11.9-15.9) 06/16/17 11:05 Plt Count 208 K/MM3 (134-434) 06/16/17 11:05 MPV 9.5 fl (7.5-11.1) 06/16/17 11:05 CMP Sodium 138 mmol/L (136-145) 06/16/17 11:05 Potassium 4.3 mmol/L (3.5-5.1) 06/16/17 11:05 Chloride 107 mmol/L (98-107) 06/16/17 11:05 Carbon Dioxide 27 mmol/L (21-32) 06/16/17 11:05 Anion Gap 4 (8-16) L 06/16/17 11:05 BUN 16 mg/dL (7-18) 06/16/17 11:05 Creatinine 1.0 mg/dL (0.7-1.3) D 06/16/17 11:05 Creat Clearance w eGFR > 60 (>60) 06/14/17 21:39 Random Glucose 92 mg/dL (74-106) 06/16/17 11:05 Calcium 8.7 mg/dL (8.5-10.1) 06/16/17 11:05 Total Bilirubin 0.1 mg/dL (0.2-1.0) L D 06/14/17 21:39 AST 27 U/L (15-37) D 06/14/17 21:39 ALT 32 U/L (12-78) D 06/14/17 21:39 Alkaline Phosphatase 89 U/L (45-117) D 06/14/17 21:39 Total Protein 7.2 g/dl (6.4-8.2) D 06/14/17 21:39 Albumin 3.5 g/dl (3.4-5.0) D 06/14/17 21:39 Current Medications Generic Name Dose Route Start Last Admin Trade Name Freq PRN Reason Stop Dose Admin Cyclobenzaprine HCl 10 mg 06/15/17 10:33 06/15/17 22:50 Flexeril - PO 10 mg TID PRN Administration MUSCLE SPASMS Gabapentin 400 mg 06/15/17 14:00 06/16/17 06:23 Neurontin - PO 400 mg TID SHERRIE Administration Heparin Sodium (Porcine) 5,000 unit 06/15/17 06:00 06/16/17 06:23 Heparin - SQ 5,000 unit TID SHERRIE Administration Hydromorphone HCl 1 mg 06/15/17 10:32 06/15/17 16:03 Dilaudid Injection - IVPB 1 mg Q3H PRN Administration PAIN LEVEL 6-10 Insulin Aspart 1 vial 06/15/17 07:00 06/16/17 12:06 Novolog Vial Sliding Scale - SQ Not Given TIDAC [facility] Protocol Lisinopril 10 mg 06/15/17 10:00 06/16/17 11:48 Prinivil PO 10 mg DAILY SHERRIE Administration Home Medications Medication Instructions Recorded Gabapentin [Neurontin -] 300 mg PO Q8H 06/14/17 CT Cervical Spine (prelim from [facility]) IMPRESSION: Tiny central C3-4 and C5-6 herniations without mass effect, although there is mild right neural foraminal narrowing at C5-6 due to vertebral joint hypertrophy. Mild central canal narrowing at C6-7, T2-[address] Lumbar Spine (prelim from [facility]) IMPRESSION: Mild right L3-4 neural foraminal narrowing due to lateral osteophytic ridging. Incomplete osseous incorporation of the L3-4 bone plug. MRI C spine: multilevel mild DDD; mild disc bulge C3-4; small central disc protrusion C5-6 and C6-7 without significant central stenosis MRI T spine: mild spondylosis; multilevel mild degenerative disc disease; no canal impingement; mild T12-L1 degenerative disc bulge MRI LS spine: Prior L3-5 fusion; canal well decompressed at these levels; mild facet hypetrophy B; mild L2-3 foramenal narrowing ASSESSMENT/PLAN: Patient is a 51yo male well known to Dr.Tom Weller , with PMHx of NIDDM, HC, HTN, prostate cancer, lumbar fusion (L4-5 then L3-4) presented to ED. c/o increasing numbness in his LE (R worse than L), patient has hx of peripheral neuropathy on Neurontin .Also having difficulty with ambulation, He states that he walks like a drunk person . He is also c/o shooting pain down his R arm x 2 days. having difficulty walking with cane. States that he Fell backwards yesterday. # Acute over chronic pain syndrome/ Sciatica pain/peripheral neuropathy on neurontin continue, dilaudid IV for pain. Ordered thoracic and lumbar MRI r/o cord impingement by Neurosurgeon. will keep the patient NPO for now # acute over chronic radiculopathy on pain meds, seen by neurologist. As per neurosurgeon no surgical intervention at this time. Patient is going to see pain management for SCS for chronic LBP/radiculopathy and peripheral neuropathy # Hx of Prostate CA s/p surgery, f/u with PCP as an outpatient, Bone scan in 2016 was negative for mets # Hx of DM2 ,sliding scale with coverage for now. # Hx of HTN, not on any meds. Started Lisinopril 10mg QD # Hx of HLD; F/u lipid panel DVT Px: Heparin 5,000u SQ TID can be discharged home post PT as per Dr.Tom Weller Visit type - Emergency Visit Emergency Visit: Yes ED Registration Date: 06/15/17 Care time: The patient presented to the Emergency Department on the above date and was hospitalized for further evaluation of their emergent condition. - New Patient This patient is new to me today: No - Critical Care Critical Care patient: No
[2017-06-16] MEDS ORDERED: BISACODYL 5 MG TABLET.DR (FP) PO PRN (23:53)
[2017-06-17] MEDS: INSULIN SLIDING SCALE (NOVOLOG) 1 VIAL SQ SCH ×2 (06:40→12:29)
[2017-06-17] MEDS: CYCLOBENZAPRINE HCL 10 MG TABLET (FP) PO PRN (06:41)
[2017-06-17] MEDS: GABAPENTIN 400 MG CAPSULE (FP) PO SCH ×2 (06:42→14:48)
[2017-06-17] MEDS: HEPARIN NA (PORCINE) 5,000 UNITS/ML 1ML VIAL SQ SCH ×2 (06:42→14:47)
--- NOTE | 2017-06-17 08:02 | PN ---
Progress Note (short form) - Note Progress Note: NEUROSURGERY Pain pattern unchanged; numbness and tingling unchanged PE: AF, VSS HEENT- NC/AT; Neck- mild spasm;CV- RRR; Lungs- CTA; Abd- benign; Ext- No sign of DVT CN- intact; Motor- B UE 4+-5 pain limited; B LE 4+-5 except R Quad/TA/IP 4-/5 also pain limited; Sensation- decreased B L4-5-S1 LT/PP; DTR- hyporeflexic MRI C spine: multilevel mild DDD; lordosis most intact; mild disc bulge C3-4; small central disc protrusion C5-6 and C6-7 without significant central stenosis /canal compromise MRI T spine: mild spondylosis; multilevel mild degenerative disc disease; no canal impingement; mild T12-L1 degenerative disc bulge MRI LS spine: Prior L3-5 fusion; canal well decompressed at these levels; mild facet hypertrophy B; mild L2-3 foramenal narrowing Patient with chronic pain syndrome and chronic radiculopathy complicated by diabetic peripheral neuropathy Current CT/MRI findings do not account for degree of symptomatology therefore direct neurosurgical intervention for the C, T or LS spine is not indicated or recommended Cont Neurontin 400 tid Should see his pain management MD (Dr Wells) tomorrow as scheduled for SCS evaluation/consideration for chronic LBP/radiculopathy and peripheral neuropathy coverage F/U with PMD Dr Jose for DM management optimization, weight reduction F/U urology for prostate dz monitoring PT prior to discharge The above d/w patient
--- NOTE | 2017-06-17 08:31 | PN ---
Physical Exam: SUBJECTIVE: Patient seen and examined this AM. Still complains that his leg has not been getting better. Will walk with PT today. No CP, no SOB, no fevers, no chills. OBJECTIVE: Vital Signs Period Temp Pulse Resp BP Sys/Gates Pulse Ox Last 24 Hr 97.7 F-98.3 F 55-81 18-20 108-114/68-71 98-98 GENERAL: AAO, in no acute distress HEENT: PERRLA, EOMi, No LAD LUNG: CTABL, no labored breathing HEART: S1, S2, RRR, No MRG ABD: Soft, nontender, nondistended, normoactive BS MSK: 2+ pulses, no erythema, no edema NEURO: Oriented x3 Cranial nerves 2-12 intact Sensation: Inconsistent sensation deficits in UE, at times RUE side stronger sensation, at times not; no vibratory or gross touch sensation on dorsal feet b/ l, unchanged, minimal sensation on plantar Muscular: Upper Extremity (5/5 in all extremities) Lower extremity (R hip ext 4/5, R knee ext 4/5, R dorsi/plant flex 5/5, L hip ext 5/5, L knee ext 5/5, L dorsi/plant flex 5/5) Reflexes: 2+ in UE, 1+ in LE Laboratory Results - last 24 hr 06/16/17 06/16/17 06/16/17 11:05 11:05 15:10 WBC 4.8 RBC 5.04 Hgb 14.6 Hct 44.3 MCV 87.9 MCH 29.0 MCHC 33.0 RDW 14.8 Plt Count 208 MPV 9.5 Sodium 138 Potassium 4.3 Chloride 107 Carbon Dioxide 27 Anion Gap 4 L BUN 16 Creatinine 1.0 D POC Glucometer 90 Random Glucose 92 Calcium 8.7 Triglycerides 137 Cholesterol 199 Total LDL Cholesterol 125 H HDL Cholesterol 47 Active Medications Generic Name Dose Route Start Last Admin Trade Name Freq PRN Reason Stop Dose Admin Bisacodyl 5 mg 06/16/17 23:53 06/17/17 00:09 Dulcolax - PO 5 mg DAILY PRN Administration CONSTIPATION Cyclobenzaprine HCl 10 mg 06/15/17 10:33 06/17/17 06:41 Flexeril - PO 10 mg TID PRN Administration MUSCLE SPASMS Gabapentin 400 mg 06/15/17 14:00 06/17/17 06:42 Neurontin - PO 400 mg TID SHERRIE Administration Heparin Sodium (Porcine) 5,000 unit 06/15/17 06:00 06/17/17 06:42 Heparin - SQ 5,000 unit TID SHERRIE Administration Hydromorphone HCl 1 mg 06/15/17 10:32 06/15/17 16:03 Dilaudid Injection - IVPB 1 mg Q3H PRN Administration PAIN LEVEL 6-10 Insulin Aspart 1 vial 06/15/17 07:00 06/17/17 06:40 Novolog Vial Sliding Scale - SQ Not Given TIDAC [facility] Protocol Lisinopril 10 mg 06/15/17 10:00 06/16/17 11:48 Prinivil PO 10 mg DAILY SHERRIE Administration ASSESSMENT/PLAN: Pt is a 51yo M with a hx of lumbar spine surgery, DM2, HLD, HTN who presented with progressive weakness and numbness of his bilateral upper and lower extremities. # B/L LE weakness/numbness - Chronic radiculopathy w/ Chronic Pain Syndrome + Diabetic Neuropathy - MRI L spine in general shows no gross nerve root impingement - Disc bulge in T12-L1 possibly slightly impinging L T12 nerve root - MRI findings do not account for degree of symptomology or warrant neurosurg intervention - F/u with pain management MD (Dr. Wells) as scheduled for SCS evaluation/ consideration # Bilateral UE Numbness - Diabetic neuropathy, less likely C spine pathology - MRI C-spine shows disc bulges in C3-4 + C6-7 w/o nerve root impingement - Continue Gabapentin at increased dose (400mg TID) # Hx of Prostate CA - s/p surgery, f/u with PCP as an outpatient - Bone scan in 2016 was negative for mets # Hx of DM2 - BGMs + SSI - No recent A1C # Hx of HTN - Pt does not take antiHTN meds - BP on admission 148/86 - Started Lisinopril 10mg QD # Hx of HLD - Lipid panel shows Total Chol 199; LDL 125 - F/u with PMD to possibly start statin # FEN - Fluids: None - Electrolytes: F/u, no abnormalities - Nutrition: Sodium diet # Prophylaxis - DVT: Heparin 5,000u SQ TID - GI: Not needed - Deconditioning: PT ordered # Disposition - Likely discharge Dr. Pau Wheeler MD. PGY1 - IM Resident
--- NOTE | 2017-06-17 09:24 | PN ---
Teaching Attending Note Name of Resident: Pau Wheeler ATTENDING PHYSICIAN STATEMENT I saw and evaluated the patient. I reviewed the resident's note and discussed the case with the resident. I agree with the resident's findings and plan as documented. SUBJECTIVE: Patient is feeling better but continues to have pain. OBJECTIVE: Vital Signs Temperature 97.6 F 06/17/17 08:42 Pulse Rate 72 06/17/17 08:42 Respiratory Rate 18 06/17/17 08:42 Blood Pressure 140/67 06/17/17 08:42 O2 Sat by Pulse Oximetry (%) 98 06/16/17 21:00 CBCD WBC 4.8 K/mm3 (4.0-10.0) 06/16/17 11:05 RBC 5.04 M/mm3 (4.00-5.60) 06/16/17 11:05 Hgb 14.6 GM/dL (11.7-16.9) 06/16/17 11:05 Hct 44.3 % (35.4-49) 06/16/17 11:05 MCV 87.9 fl (80-96) 06/16/17 11:05 MCHC 33.0 g/dl (32.0-35.9) 06/16/17 11:05 RDW 14.8 % (11.9-15.9) 06/16/17 11:05 Plt Count 208 K/MM3 (134-434) 06/16/17 11:05 MPV 9.5 fl (7.5-11.1) 06/16/17 11:05 CMP Sodium 138 mmol/L (136-145) 06/16/17 11:05 Potassium 4.3 mmol/L (3.5-5.1) 06/16/17 11:05 Chloride 107 mmol/L (98-107) 06/16/17 11:05 Carbon Dioxide 27 mmol/L (21-32) 06/16/17 11:05 Anion Gap 4 (8-16) L 06/16/17 11:05 BUN 16 mg/dL (7-18) 06/16/17 11:05 Creatinine 1.0 mg/dL (0.7-1.3) D 06/16/17 11:05 Creat Clearance w eGFR > 60 (>60) 06/14/17 21:39 Random Glucose 92 mg/dL (74-106) 06/16/17 11:05 Calcium 8.7 mg/dL (8.5-10.1) 06/16/17 11:05 Total Bilirubin 0.1 mg/dL (0.2-1.0) L D 06/14/17 21:39 AST 27 U/L (15-37) D 06/14/17 21:39 ALT 32 U/L (12-78) D 06/14/17 21:39 Alkaline Phosphatase 89 U/L (45-117) D 06/14/17 21:39 Total Protein 7.2 g/dl (6.4-8.2) D 06/14/17 21:39 Albumin 3.5 g/dl (3.4-5.0) D 06/14/17 21:39 Current Medications Generic Name Dose Route Start Last Admin Trade Name Freq PRN Reason Stop Dose Admin Bisacodyl 5 mg 06/16/17 23:53 06/17/17 00:09 Dulcolax - PO 5 mg DAILY PRN Administration CONSTIPATION Cyclobenzaprine HCl 10 mg 06/15/17 10:33 06/17/17 06:41 Flexeril - PO 10 mg TID PRN Administration MUSCLE SPASMS Gabapentin 400 mg 06/15/17 14:00 06/17/17 06:42 Neurontin - PO 400 mg TID SHERRIE Administration Heparin Sodium (Porcine) 5,000 unit 06/15/17 06:00 06/17/17 06:42 Heparin - SQ 5,000 unit TID SHERRIE Administration Hydromorphone HCl 1 mg 06/15/17 10:32 06/15/17 16:03 Dilaudid Injection - IVPB 1 mg Q3H PRN Administration PAIN LEVEL 6-10 Insulin Aspart 1 vial 06/15/17 07:00 06/17/17 06:40 Novolog Vial Sliding Scale - SQ Not Given TIDAC [facility] Protocol Lisinopril 10 mg 06/15/17 10:00 06/16/17 11:48 Prinivil PO 10 mg DAILY SHERRIE Administration Home Medications Medication Instructions Recorded Gabapentin [Neurontin -] 300 mg PO Q8H 06/14/17 PE: per resident's note CT Cervical Spine (prelim from [facility]) IMPRESSION: Tiny central C3-4 and C5-6 herniations without mass effect, although there is mild right neural foraminal narrowing at C5-6 due to vertebral joint hypertrophy. Mild central canal narrowing at C6-7, T2-[address] Lumbar Spine (prelim from [facility]) IMPRESSION: Mild right L3-4 neural foraminal narrowing due to lateral osteophytic ridging. Incomplete osseous incorporation of the L3-4 bone plug. MRI C spine: multilevel mild DDD; mild disc bulge C3-4; small central disc protrusion C5-6 and C6-7 without significant central stenosis MRI T spine: mild spondylosis; multilevel mild degenerative disc disease; no canal impingement; mild T12-L1 degenerative disc bulge MRI LS spine: Prior L3-5 fusion; canal well decompressed at these levels; mild facet hypetrophy B; mild L2-3 foramenal narrowing ASSESSMENT/PLAN: Patient is a 51yo male well known to Dr.Tom Weller , with PMHx of NIDDM, HC, HTN, prostate cancer, lumbar fusion (L4-5 then L3-4) presented to ED. c/o increasing numbness in his LE (R worse than L), patient has hx of peripheral neuropathy on Neurontin .Also having difficulty with ambulation, He states that he walks like a drunk person . He is also c/o shooting pain down his R arm x 2 days. having difficulty walking with cane. States that he Fell backwards yesterday. # Acute over chronic pain syndrome/ Sciatica pain/peripheral neuropathy on neurontin continue, dilaudid IV for pain. Ordered thoracic and lumbar MRI r/o cord impingement by Neurosurgeon. will keep the patient NPO for now # acute over chronic radiculopathy on pain meds, seen by neurologist. As per neurosurgeon no surgical intervention at this time. Patient is going to see pain management for SCS for chronic LBP/radiculopathy and peripheral neuropathy # Hx of Prostate CA s/p surgery, f/u with PCP as an outpatient, Bone scan in 2016 was negative for mets # Hx of DM2 ,sliding scale with coverage for now. # Hx of HTN, not on any meds. Started Lisinopril 10mg QD # Hx of HLD; F/u lipid panel DVT Px: Heparin 5,000u SQ TID Patient did well with physical therapy , no further intervention as per Neurosurgeon, needs to follow with the pain managment today As per Neurosurgery: Current CT/MRI findings do not account for degree of symptomatology therefore direct neurosurgical intervention for the C, T or LS spine is not indicated or recommended Cont Neurontin 400 tid Should see his pain management MD (Dr Wells) today as scheduled for SCS evaluation/consideration for chronic LBP/radiculopathy and peripheral neuropathy coverage F/U with PMD Dr Jose for DM management optimization, weight reduction F/U urology for prostate dz monitoring
[2017-06-17] MEDS: LISINOPRIL 10 MG TABLET (FP) PO SCH (10:05)
[2017-06-17 13:51] VITALS: BP 122/70; PULSE 77; TEMP 97.9
--- NOTE | 2017-06-17 17:25 | DS ---
Physical Exam: SUBJECTIVE: Patient seen and examined this AM. Still complains that his leg has not been getting better. Will walk with PT today. No CP, no SOB, no fevers, no chills. OBJECTIVE: Vital Signs Period Temp Pulse Resp BP Sys/Gates Pulse Ox Last 24 Hr 97.6 F-98.3 F 68-81 18-18 108-140/67-71 98-98 PHYSICAL EXAM GENERAL: AAO, in no acute distress HEENT: PERRLA, EOMi, No LAD LUNG: CTABL, no labored breathing HEART: S1, S2, RRR, No MRG ABD: Soft, nontender, nondistended, normoactive BS MSK: 2+ pulses, no erythema, no edema NEURO: Oriented x3 Cranial nerves 2-12 intact Sensation: Inconsistent sensation deficits in UE, at times RUE side stronger sensation, at times not; no vibratory or gross touch sensation on dorsal feet b/ l, unchanged Muscular: Upper Extremity (5/5 in all extremities) Lower extremity (R hip ext 4/5, R knee ext 4/5, R dorsi/plant flex 5/5, L hip ext 5/5, L knee ext 5/5, L dorsi/plant flex 5/5) Reflexes: 2+ in UE, 1+ in LE LABS Laboratory Results - last 24 hr 06/17/17 11:24 POC Glucometer 114 Laboratory Last Values WBC 4.8 K/mm3 (4.0-10.0) 06/16/17 11:05 RBC 5.04 M/mm3 (4.00-5.60) 06/16/17 11:05 Hgb 14.6 GM/dL (11.7-16.9) 06/16/17 11:05 Hct 44.3 % (35.4-49) 06/16/17 11:05 MCV 87.9 fl (80-96) 06/16/17 11:05 MCH 29.0 pg (25.7-33.7) 06/16/17 11:05 MCHC 33.0 g/dl (32.0-35.9) 06/16/17 11:05 RDW 14.8 % (11.9-15.9) 06/16/17 11:05 Plt Count 208 K/MM3 (134-434) 06/16/17 11:05 MPV 9.5 fl (7.5-11.1) 06/16/17 11:05 Neutrophils % 40.7 % (42.8-82.8) L D 06/14/17 21:39 Lymphocytes % 42.5 % (8-40) H D 06/14/17 21:39 Monocytes % 7.9 % (3.8-10.2) 06/14/17 21:39 Eosinophils % 7.9 % (0-4.5) H D 06/14/17 21:39 Basophils % 1.0 % (0-2.0) 06/14/17 21:39 Sodium 138 mmol/L (136-145) 06/16/17 11:05 Potassium 4.3 mmol/L (3.5-5.1) 06/16/17 11:05 Chloride 107 mmol/L (98-107) 06/16/17 11:05 Carbon Dioxide 27 mmol/L (21-32) 06/16/17 11:05 Anion Gap 4 (8-16) L 06/16/17 11:05 BUN 16 mg/dL (7-18) 06/16/17 11:05 Creatinine 1.0 mg/dL (0.7-1.3) D 06/16/17 11:05 Creat Clearance w eGFR > 60 (>60) 06/14/17 21:39 POC Glucometer 114 UNITS (()) 06/17/17 11:24 Random Glucose 92 mg/dL (74-106) 06/16/17 11:05 Calcium 8.7 mg/dL (8.5-10.1) 06/16/17 11:05 Total Bilirubin 0.1 mg/dL (0.2-1.0) L D 06/14/17 21:39 AST 27 U/L (15-37) D 06/14/17 21:39 ALT 32 U/L (12-78) D 06/14/17 21:39 Alkaline Phosphatase 89 U/L (45-117) D 06/14/17 21:39 Total Protein 7.2 g/dl (6.4-8.2) D 06/14/17 21:39 Albumin 3.5 g/dl (3.4-5.0) D 06/14/17 21:39 Triglycerides 137 mg/dL (35-160) 06/16/17 11:05 Cholesterol 199 mg/dL (50-200) 06/16/17 11:05 Total LDL Cholesterol 125 mg/dL (5-100) H 06/16/17 11:05 HDL Cholesterol 47 mg/dL (40-60) 06/16/17 11:05 IMAGING: Lumbar spine CT w/o contrast: Status post bilateral transpedicular screw fixation at the L3 and L4 levels. Status post bilateral L3 and L4 laminectomies. Nonspecific vertebral endplate irregularity with associated sclerosis is seen along the opposing L3 and L4 vertebral endplate There is no CT evidence of fracture. No obvious disc herniation is seen allowing for metallic artifact arising from surgical instrumentation. There is no definite canal stenosis. The perivertebral soft tissues demonstrate no definite abnormality Lumbar spine MRI w/o contrast: Posterior fusion of L3-L4 and interbody spaces at L3-L4 and L4-L5 level are present without compromise of the spinal canal. However, there is minimal left lateral spur formation at L3-L4 level slightly narrowing the left foramen without gross nerve root impingement. L2-L3 minimal bilateral lateral disc bulge slightly narrowing the foramina without gross nerve root impingement. T12-L1 mild mainly central and left lateral disc bulge reaching and possibly slightly impinging left T12 nerve root. Cervical spine CT w/o contrast: C6-C7 left paracentral posterior disc herniation with impingement on the thecal sac. Extent of the impingement and its relation to the spinal cord cannot be determined on this exam. Mild C5-C6 broad-based posterior disc bulge with minimal impingement on the thecal sac. Further evaluation with MRI of the cervical spine may be obtained for further evaluation. Cervical spine MRI w/o contrast: C6-C7 mild central disc bulge/protrusion deforming the thecal sac without nerve root impingement. Mild bilateral ligamentum flavum hypertrophy is also present. C3-C4 minimal disc bulge and C5- C6 minimal right uncovertebral hypertrophy, as described above. Thoracic spine MRI w/o contrast: Minimal disc bulge mainly at T4-T5 level without cord or nerve root impingement HOSPITAL COURSE: Date of Admission:06/15/17 Date of Discharge: 06/17/17 Pt is a 51yo M with a hx of lumbar spine surgery, DM2, HLD, HTN who presented with progressive weakness and numbness of his bilateral upper and lower extremities. # Bilateral Lower Extremity weakness/numbness - Imaging was taken early on in the hospital course, which revealed no gross nerve root impingement. The patient was seen by neurologists and neurosurgeons in the hospital, who noted that the MRI findings do not account for the degree of symptomatology or warrant any neurosurgical intervention at the moment. The patient's symptoms are contributed by his Chronic Radiculopathy, Chronic Pain Syndrome, and Diabetic Neuropathy. The patient will followup with his painting technician Dr. Wells as scheduled today for evaluation/ consideration for a spinal cord stimulator. We did not dischage the patient on pain medication because he will see his pain specialist today. # Bilateral UE Numbness - The patient initially presented with new symptoms of upper extremity numbness , which is likely due to his worsening diabetic neuropathy and less likely C- spine pathology, since the MRI C-spine did not show any nerve root impingement. The patient was sent home on an increased dose of Gabapentin 400mg PO TID. # Other - Hx of Prostate Cancer - F/u with PCP as an outpatient - Hx of DM2 - The patient's blood glucose levels were within normal limits, he did not need short acting insulin. He will need to followup with his PCP and get an A1C. - Hx of HTN - The pt was not on any anti-HTN meds, and was started on Lisinopril 10mg QD - Hx of HLD - The patient's LDL was 125, Total Chol 199, the patient was encouraged to followup with his PMD to possibly start on a statin The patient will follow with his PCP/Neurosurgeon for further evaluation and physical therapy The patient was aware of the hospital course and agrees with the plan. Minutes to complete discharge: 55 Discharge Summary Reason For Visit: WEAKNESS UNABLE TO AMBULATE Condition: Improved - Instructions Diet, Activity, Other Instructions: - We changed the dose of your Gabapentin, please take your new prescription of 400mg three times a day - We also added Lisinopril 10mg daily to your med list for your high blood pressure - Please use your walker at home - Please followup with your painting technician - Please followup with your neurosurgeon - Please followup with your primary care provider - If you have any serious symptoms, please return to the ER Referrals: Diana Jose MD [Primary Care Provider] - Disposition: HOME - Home Medications Comprehensive Discharge Medication List: Ambulatory Orders Gabapentin 400 mg PO TID #90 capsule 06/17/17 Lisinopril [Prinivil] 10 mg PO DAILY #30 tablet 06/17/17 This patient is new to me today: No Emergency Visit: No Critical Care patient: No - Discharge Referral Referred to [facility] No
== END 2017-06-17 15:55 | disposition home or self-care (01) | DRG 48 ==
LOC: JER 19:56 → JERBED 06-15 02:27 → UNDOADMIN 06-15 02:38 → JERBED 06-15 02:38 → J6S 06-15 04:39 → JERBED 06-15 04:39 → J6S 06-17 06:46
PROVIDERS: ADMIT Internal Medicine; ATTEND Internal Medicine
DX: E11.42 Type 2 diabetes mellitus with diabetic polyneuropathy (principal); E78.5 Hyperlipidemia, unspecified; I10 Essential (primary) hypertension; Z85.46 Personal history of malignant neoplasm of prostate; M54.30 Sciatica, unspecified side
CPT/HCPCS: 36415; 71010-TC; 72125-TC; 72131-TC; 72141-TC; 72146-TC; 72148-TC; 80048; 80053; 80061; 83721; 85025; 85027; 93005; 93010; 97116-GP; 97161-GP; 99283-25; J1644

== ENCOUNTER 2017-06-20 18:19 | Emergency (ER) | payer OTHER ==
[2017-06-20 18:24] VITALS: BP 126/78; PULSE 95; TEMP 97.5; BMI 29.2
--- NOTE | 2017-06-20 19:44 | PDOC ---
History of Present Illness - General Chief Complaint: Back Pain Stated Complaint: BACK/LEG PAIN Time Seen by Provider: 06/20/17 19:30 History Source: Patient, Old Records Exam Limitations: No Limitations - History of Present Illness Initial Comments: 06/20/17 19:44 Pt is a 51yo M with a PMHX of lumbar surgeries (2014), well-controlled DM2, prostate cancer s/p prostatectomy (10/26), HLD, HTN who presents with increasing weakness and numbness in his feet with increased numbness in his fingertips. The patient was admitted to the hospital last week for complaints of B/L Leg numbness and tingling. At that time a MRI of the lumbar spine was taken which showed L3-L4 graft with end-plate irregularity with associated sclerosis and slight impingement at the level of T12-L1. The patient came into the ER today complaining that the weakness and numbness have progressively gotten worse, and now he needs a cane to walk. He denies bladder or bowel dysfunction, but reports neuropathic pain radiating from back to both legs. He also is experiencing B/L hand numbness and weakness, and reports neuropathic pain radiating from neck to hands. He does have chronic diabetic neuropathy, and is on Gabapentin. He has been experiencing constipation since his discharge on 06/15. He denies chest pain, SOB, fevers, chills or headaches. Occurred: reports: last week Pain Location: reports: back, lower extremity (bilateral), upper extremity ( bilateral) Associated Symptoms (Fall): denies symptoms Past History - Travel Traveled outside of the country in the last 30 days: No Close contact w/someone who was outside of country & ill: No - Past Medical History Allergies/Adverse Reactions: Allergies Allergy/AdvReac Type Severity Reaction Status Date / Time No Known Drug Allergies Allergy Verified 06/20/17 18:21 Home Medications: Ambulatory Orders Gabapentin 400 mg PO TID #90 capsule 06/17/17 Lisinopril [Prinivil] 10 mg PO DAILY #30 tablet 06/17/17 Anemia: No Asthma: Yes ( CHILD) Cancer: Yes (prostate) Cardiac Disorders: No CVA: No COPD: No CHF: No Dementia: No Diabetes: Yes (diet controlled) GI Disorders: No Disorders: Yes HTN: Yes Hypercholesterolemia: No Liver Disease: No Seizures: No Thyroid Disease: No - Surgical History Abdominal Surgery: No Appendectomy: No Cardiac Surgery: No Cholecystectomy: No Lung Surgery: No Neurologic Surgery: No Orthopedic Surgery: Yes (L4-5 LAMINECTOMY w/ revision) - Immunization History Immunization Up to Date: Yes - Psycho/Social/Smoking Cessation Hx Anxiety: No Suicidal Ideation: No Smoking History: Current some day smoker Have you smoked in the past 12 months: No Number of Cigarettes Smoked Daily: 5 If you are a former smoker, when did you quit?: 4 YRS Information on smoking cessation initiated: No Hx Alcohol Use: No Drug/Substance Use Hx: No Substance Use Type: None Hx Substance Use Treatment: No Review of Systems - Review of Systems Able to Perform ROS?: Yes Is the patient limited Qatari proficient: No Constitutional: No: Symptoms Reported HEENTM: No: Symptoms Reported Respiratory: No: Symptoms reported Cardiac (ROS): No: Symptoms Reported ABD/GI: Yes: Constipated : No: Symptoms Reported Musculoskeletal: Yes: Back Pain Integumentary: No: Symptoms Reported Neurological: Yes: Paresthesia (bilateral lower extrmities), Weakness ( generalized) *Physical Exam - Vital Signs Last Vital Signs Temp Pulse Resp BP Pulse Ox 97.5 F L 95 H 18 126/78 98 06/20/17 18:21 06/20/17 18:21 06/20/17 18:21 06/20/17 18:21 06/20/17 18:21 - Physical Exam General Appearance: Yes: Appropriately Dressed. No: Apparent Distress HEENT: positive: RICHARD, Normal ENT Inspection, Normal Voice Neck: positive: Trachea midline, Supple. negative: Tender Respiratory/Chest: positive: Lungs Clear, Normal Breath Sounds. negative: Chest Tender, Respiratory Distress, Accessory Muscle Use Cardiovascular: positive: Regular Rhythm, Regular Rate, S1, S2. negative: Edema , JVD, Murmur Gastrointestinal/Abdominal: positive: Normal Bowel Sounds, Soft. negative: Tender, Organomegaly Rectal Exam: positive: normal rectal tone, other (prostate absent) Musculoskeletal: positive: Normal Inspection. negative: CVA Tenderness Extremity: positive: Normal Inspection. 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 The patient was admitted to the hospital last week for complaints of B/L Leg numbness and tingling. At that time a MRI of the lumbar spine was taken which showed L3-L4 graft with end-plate irregularity with associated sclerosis and slight impingement at the level of T12-L1. The patient came into the ER today complaining that the weakness and numbness have progressively gotten worse, and now he needs a cane to walk. He denies bladder or bowel dysfunction, but reports neuropathic pain radiating from back to both legs. He also is experiencing B/L hand numbness and weakness, and reports neuropathic pain radiating from neck to hands. He does have chronic diabetic neuropathy, and is on Gabapentin. 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 He has been experiencing constipation since his discharge on 06/15. He denies recent trauma, chest pain, SOB, fevers, chills or headaches. - deferred imaging as exam is unchanged from discharge - CBC, CMP, UA - Toradol 06/20/17 23:41 Patient with minimal relief of pain. I discussed the physical exam findings, ancillary test results and final diagnoses with the patient. I answered all of the patient's questions. The patient was satisfied with the care received and felt comfortable with the discharge plan and treatment plan. The patient will call pain management within 24 hours to arrange follow-up and will return to the Emergency Department with any new, persistent or worsening symptoms. *DC/Admit/Observation/Transfer Diagnosis at time of Disposition: Weakness of both legs - Discharge Dispostion Disposition: HOME Condition at time of disposition: Stable Admit: No - Referrals Referrals: Diana Jose MD [Primary Care Provider] - - Patient Instructions Additional Instructions: Call Dr. Wilcox tomorrow morning for appointment as soon as possible. Take previously prescribed pain medications as directed. Keep well hydrated. Return to ER for inability to walk, severe pain or any other concerns.
--- NOTE | 2017-06-20 19:52 | PDOC ---
*Physical Exam - Vital Signs Last Vital Signs Temp Pulse Resp BP Pulse Ox 97.5 F L 95 H 18 126/78 98 06/20/17 18:21 06/20/17 18:21 06/20/17 18:21 06/20/17 18:21 06/20/17 18:21 ED Treatment Course - LABORATORY CBC & Chemistry Diagram: 06/20/17 20:35 06/20/17 20:35 Medical Decision Making - Medical Decision Making 06/20/17 19:52 agree with care from [facility] *DC/Admit/Observation/Transfer Diagnosis at time of Disposition: Weakness of both legs - Referrals Referrals: Diana Jose MD [Primary Care Provider] - - Patient Instructions Additional Instructions: Call Dr. Wilcox tomorrow morning for appointment as soon as possible. Take previously prescribed pain medications as directed. Keep well hydrated. Return to ER for inability to walk, severe pain or any other concerns.
[2017-06-20 20:56] LABS: BASOPHIL 1.8 % (0-2.0); EOSINOPHIL 5.8 % (0-4.5); MCH 29.3 pg (25.7-33.7); MCHC 33.6 g/dl (32.0-35.9); MEAN CELL VOLUME 87.2 fl (80-96); MEAN PLT VOLUME 9.9 fl (7.5-11.1); PLATELET COUNT 220 K/MM3 (134-434); RDW 14.7 % (11.9-15.9); WHITE BLOOD COUNT 5.5 K/mm3 (4.0-10.0)
[2017-06-20 21:22] LABS: PLATELET ESTIMATE ADEQUATE (NORMAL)
[2017-06-20 21:24] LABS: ALBUMIN 3.8 g/dl (3.4-5.0); ANION GAP 5 (8-16); BILIRUBIN,TOTAL 0.4 mg/dL (0.2-1.0); CALCIUM 9.6 mg/dL (8.5-10.1); CO2 28 mmol/L (21-32); CREATININE 0.9 mg/dL (0.7-1.3); GLUCOSE,RANDOM 74 mg/dL (74-106); SGOT/AST 20 U/L (15-37); SGPT/ALT 35 U/L (12-78); TOT PROT 7.6 g/dl (6.4-8.2)
[2017-06-20 21:25] LABS: ALK PHOS 91 U/L (45-117)
[2017-06-20 22:32] LABS: URINE APPEARANCE CLEAR; URINE BILIRUBIN NEGATIVE (NEGATIVE); URINE BLOOD NEGATIVE (NEGATIVE); URINE COLOR YELLOW; URINE GLUCOSE (UA) NEGATIVE (NEGATIVE); URINE KETONE NEGATIVE (NEGATIVE); URINE LEUK ESTERASE NEGATIVE (NEGATIVE); URINE NITRITE NEGATIVE (NEGATIVE); URINE PROTEIN NEGATIVE (NEGATIVE); URINE UROBILINOGEN NEGATIVE mg/dL (0.2-1.0)
[2017-06-20] MEDS ORDERED: KETOROLAC TROMETHAMINE 30 MG/1 ML VIAL IM ONE (23:12)
[2017-06-20] MEDS ORDERED: KETOROLAC TROMETHAMINE 30 MG/1 ML VIAL ONE (23:25)
== END 2017-06-21 00:16 | disposition home or self-care (01) ==
LOC: JER 18:19
PROC: 3E0233Z Introduction of Anti-inflammatory into Muscle, Percutaneous Approach (ICD-10-PCS; principal; 2017-06-20)
DX: M62.81 Muscle weakness (generalized) (principal); Z85.46 Personal history of malignant neoplasm of prostate; I10 Essential (primary) hypertension; N39.9 Disorder of urinary system, unspecified; F17.210 Nicotine dependence, cigarettes, uncomplicated
CPT/HCPCS: 36415; 80053; 81003; 85025; 99281-25

== ENCOUNTER 2019-06-14 23:13 | Emergency (ER) | payer OTHER ==
[2019-06-14 23:20] VITALS: BP 116/74; PULSE 84; TEMP 97.8; BMI 23.7
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
[2019-06-14] MEDS ORDERED: DIPHTH,PERTUSS(ACELL),TET 0.5 ML DISP.SYRIN IM ONE ×2 (23:46→23:51)
[2019-06-15] MEDS ORDERED: BACITRACIN 0.9 GM PACKET TP ONE (00:40)
[2019-06-15] MEDS ORDERED: BACITRACIN 0.9 GM PACKET ONE (00:42)
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
== END 2019-06-15 01:27 | disposition home or self-care (01) ==
LOC: JER 23:13
PROC: 3E0234Z Introduction of Serum, Toxoid and Vaccine into Muscle, Percutaneous Approach (ICD-10-PCS; principal; 2019-06-14)
DX: S20.372A Other superficial bite of left front wall of thorax, initial encounter (principal); Y04.1XXA Assault by human bite, initial encounter; Y93.89 Activity, other specified; Y92.89 Other specified places as the place of occurrence of the external cause; Y99.8 Other external cause status; S40.012A Contusion of left shoulder, initial encounter; S40.011A Contusion of right shoulder, initial encounter; S80.212A Abrasion, left knee, initial encounter; S80.211A Abrasion, right knee, initial encounter; S30.811A Abrasion of abdominal wall, initial encounter; Y04.2XXA Assault by strike against or bumped into by another person, initial encounter; Y07.6 Multiple perpetrators of maltreatment and neglect
CPT/HCPCS: 70486-TC; 71046-TC-FY; 71101-TC-LT-FY; 90471; 90715; 99282-25

== ENCOUNTER 2021-03-20 16:54 | Emergency (ER) | payer OTHER ==
[2021-03-20 17:01] VITALS: BP 131/82; PULSE 87; TEMP 98.9; BMI 23.7
[2021-03-20] MEDS ORDERED: IBUPROFEN 600 MG TABLET (FP) PO ONE (17:51)
== END 2021-03-20 19:10 | disposition home or self-care (01) ==
LOC: JERFT 16:54
DX: M20.011 Mallet finger of right finger(s) (principal)
CPT/HCPCS: 73130-TC-RT-FY; 99284-25